=== PATIENT | male | born 1945 | race Caucasian/White ===

== ENCOUNTER → 2022-11-24 | Outpatient (REF) | payer MEDICARE ==
[~2022-11-24] MED LIST: ATOR1TAB21; BASA100I; GLIM4TAB5; HYDR-3490; LOSA25TA13; NOXI1TAB PO; SERT50TA29; TRUL10IN
[2022-11-24 17:50] LABS: BASO % 1.1 % (0.0-1.0); EOS # 0.1 10^3/uL (0.0-0.5); EOS % 1.4 % (0.0-3.0); HEMATOCRIT 23.4 % (42.0-52.0); HEMOGLOBIN 7.9 g/dl (13.5-17.5); LYMPH # 1.8 10^3/uL (1.5-5.0); LYMPH % 51.1 % (24.0-44.0); MEAN CORPUSCULAR HEMOGLOBIN 37.1 pg (27.0-33.0); MEAN CORPUSCULAR HGB CONC 33.8 g/dl (32.0-36.5); MEAN CORPUSCULAR VOLUME 109.9 fl (80.0-96.0); MONO # 0.4 10^3/uL (0.0-0.8); MONO % 10.3 % (2.0-8.0); NEUTROPHILS # 1.2 10^3/uL (1.5-8.5); NEUTROPHILS % 33.3 % (36.0-66.0); RED BLOOD COUNT 2.13 10^6/uL (4.30-6.10); WHITE BLOOD COUNT 3.6 10^3/uL (4.0-10.0)
[2022-11-24 17:58] LABS: PLATELET COUNT, AUTOMATED 25 10^3/uL (150-450)
== END ==
LOC: M LABDRAWC 16:47
PROVIDERS: ATTEND Specialist
DX: D69.6 Thrombocytopenia, unspecified (principal)

== ENCOUNTER → 2022-12-01 | Outpatient (REF) | payer MEDICARE ==
[2022-12-01 18:34] LABS: BASO % 1.1 % (0.0-1.0); EOS # 0.1 10^3/uL (0.0-0.5); EOS % 3.5 % (0.0-3.0); HEMATOCRIT 22.1 % (42.0-52.0); HEMOGLOBIN 7.4 g/dl (13.5-17.5); LYMPH # 1.7 10^3/uL (1.5-5.0); LYMPH % 45.7 % (24.0-44.0); MEAN CORPUSCULAR HEMOGLOBIN 37.6 pg (27.0-33.0); MEAN CORPUSCULAR HGB CONC 33.5 g/dl (32.0-36.5); MEAN CORPUSCULAR VOLUME 112.2 fl (80.0-96.0); MONO # 0.5 10^3/uL (0.0-0.8); MONO % 12.8 % (2.0-8.0); NEUTROPHILS # 1.4 10^3/uL (1.5-8.5); NEUTROPHILS % 36.9 % (36.0-66.0); RED BLOOD COUNT 1.97 10^6/uL (4.30-6.10); WHITE BLOOD COUNT 3.7 10^3/uL (4.0-10.0)
[2022-12-01 19:50] LABS: PLATELET COUNT, AUTOMATED 20 10^3/uL (150-450)
== END ==
LOC: M LABDRAWC 17:41
PROVIDERS: ATTEND Specialist
DX: D61.810 Antineoplastic chemotherapy induced pancytopenia (principal)

== ENCOUNTER → 2022-12-07 | Outpatient (CLI) | payer MEDICARE ==
[~2022-12-07] MED LIST changes: +LIDOCAINE 1% MDV 20ML VIAL As Ordered ONE; +POTA-298 PO
[2022-12-07 08:15] VITALS: TEMP 97.5
[2022-12-07 09:16] LABS: EOS # 0.1 10^3/uL (0.0-0.5); EOS % 2.7 % (0.0-3.0); HEMATOCRIT 22.4 % (42.0-52.0); HEMOGLOBIN 7.5 g/dl (13.5-17.5); LYMPH # 1.6 10^3/uL (1.5-5.0); LYMPH % 39.5 % (24.0-44.0); MEAN CORPUSCULAR HEMOGLOBIN 35.7 pg (27.0-33.0); MEAN CORPUSCULAR HGB CONC 33.5 g/dl (32.0-36.5); MEAN CORPUSCULAR VOLUME 106.7 fl (80.0-96.0); MONO # 0.5 10^3/uL (0.0-0.8); MONO % 13.2 % (2.0-8.0); NEUTROPHILS # 1.3 10^3/uL (1.5-8.5); NEUTROPHILS % 32.4 % (36.0-66.0); WHITE BLOOD COUNT 4.1 10^3/uL (4.0-10.0)
[2022-12-07 09:20] VITALS: BP 121/60; O2SAT 95
[2022-12-07 09:23] LABS: LDH LACTATE DEHYDROGENASE 502 U/L (120-246)
[2022-12-07 09:24] LABS: TOTAL IRON BINDING CAPACITY 280 UG/DL (250-425)
[2022-12-07 09:25] LABS: IRON (FE) 82 UG/DL (65-175); PERCENT SATURATION 29.3 % (19.7-50.0)
[2022-12-07 09:26] LABS: FREE T4 1.11 NG/DL (0.89-1.76); THYROID STIMULATING HORMONE 2.342 uIU/ML (0.55-4.78)
[2022-12-07 09:27] LABS: FOLATE 14.1 NG/ML (>5.4); VITAMIN B12 LEVEL 418 PG/ML (211-911)
[2022-12-07 09:32] LABS: PLATELET COUNT, AUTOMATED 14 10^3/uL (150-450)
[2022-12-07 09:44] LABS: INR 1.18; PROTHROMBIN TIME 15.3 SECONDS (12.5-14.5)
[2022-12-07 09:45] LABS: PARTIAL THROMBOPLASTIN TIME 33.3 SECONDS (24.8-34.2)
[2022-12-07 09:56] LABS: ALBUMIN 2.4 G/DL (3.2-5.2); ALKALINE PHOSPHATASE 49 U/L (46-116); ALT/SGPT 28 U/L (7.0-40); AST/SGOT 23 U/L (<34); BILIRUBIN,TOTAL 0.5 MG/DL (0.3-1.2); BLOOD UREA NITROGEN 19 MG/DL (9-23); CALCIUM LEVEL 7.6 MG/DL (8.3-10.6); CARBON DIOXIDE LEVEL 28 MMOL/L (20-31); CHLORIDE LEVEL 101 MMOL/L (98-107); CREATININE FOR GFR 0.77 MG/DL (0.70-1.30); FERRITIN 3238.1 NG/ML (10.5-307.3); GLOMERULAR FILTRATION RATE > 60.0 (>42); GLUCOSE, FASTING 203 MG/DL (74-106); POTASSIUM SERUM 2.9 MMOL/L (3.5-5.1); SODIUM LEVEL 138 MMOL/L (136-145); TOTAL PROTEIN 6.3 G/DL (5.7-8.2)
== END ==
LOC: M IRPRO 07:59
PROVIDERS: ATTEND Specialist
DX: D64.9 Anemia, unspecified (principal); D69.6 Thrombocytopenia, unspecified
CPT/HCPCS: 36415; 36430; 38222; 77012; 80053; 80503; 82607; 82728; 82746; 83550; 83615; 84439; 84443; 85025; 85049; 85055; 85610; 85730; 86850; 86900; 86901; 86920; 88300; 88305; 88311; 88313; P9016